=== PATIENT | female | born 1990 | race Two or more races ===

== ENCOUNTER 2021-05-10 10:28 | Emergency (ER) | payer BC, OTHER ==
[~2021-05-10] VITALS: Ht 160 cm; Wt 65.8 kg
[2021-05-10 10:50] VITALS: BP 137/90
[2021-05-10] MEDS ORDERED: predniSONE 20 MG TABLET PO ONE (11:00)
[2021-05-10] MEDS ORDERED: predniSONE 20 MG TABLET ONE (11:07)
[2021-05-10] MEDS ORDERED: VALA10002 PO (11:27)
[2021-05-10] MEDS ORDERED: PRED20TA PO (11:27)
--- NOTE | 2021-05-10 11:32 | NUR ---
Patient discharged to home in stable condition. Written and verbal after care instructions given. Patient verbalizes understanding of instruction.
== END 2021-05-10 11:43 | disposition home or self-care (01) ==
LOC: ER 10:28
DX: G51.0 Bell's palsy (principal)
CPT/HCPCS: 99283; J7512